=== PATIENT | male | born 1985 | race Caucasian/White ===

== ENCOUNTER 2023-10-22 17:44 | Emergency (ER) | payer OTHER ==
[2023-10-22 17:59] VITALS: BP 123/85; O2SAT 98
--- NOTE | 2023-10-22 18:03 | ED Physician Documentation ---
PD HPI DYSPNEA - Stated complaint Stated Complaint: COUGH/CONGESTION - Chief complaint Chief Complaint: Resp - History obtained from History obtained from: Patient - Additional information Additional information: Otherwise healthy 38-year-old gentleman who is active duty in the [employer] has been having chest and sinus congestion for the last 3 days with cough that is minimally productive. He feels like he has been wheezing. No history of asthma. No fevers with this. He has 2 small children at home that have had runny noses. PD PAST MEDICAL HISTORY - Past Medical History Past Medical History: No Cardiovascular: None Respiratory: None Neuro: None Endocrine/Autoimmune: None GI: None : None HEENT: None Psych: None Musculoskeletal: None Derm: None - Past Surgical History Past Surgical History: No - Present Medications Home Medications: Ambulatory Orders Medication Instructions Recorded Confirmed Albuterol Sulf [Ventolin Hfa 1 - 2 puffs INH Q4HR PRN #1 each 10/22/23 Inhaler] Benzonatate [Tessalon] 200 mg PO TID PRN #20 cap 10/22/23 predniSONE [Deltasone] 60 mg PO DAILY 5 Days #15 tablet 10/22/23 - Allergies Allergies/Adverse Reactions: Allergies Allergy/AdvReac Type Severity Reaction Status Date / Time No Known Drug Allergies Allergy Verified 10/22/23 17:48 - Social History Does the pt smoke?: No Smoking Status: Never smoker Does the pt drink ETOH?: No Does the pt have substance abuse?: No - Immunizations Immunizations are current?: Yes - POLST Patient has POLST: No PD ED PE NORMAL - Vitals Vital signs reviewed: Yes - General General: Alert and oriented X 3, No acute distress - HEENT HEENT: Other (Mildly red tonsillar pillars with diminutive tonsils, but no exudates. Supple neck without adenopathy. TMs normal.) - Neck Neck: Supple, no meningeal sign, No bony TTP - Cardiac Cardiac: RRR, No murmur, Other (Quite wheezy throughout with diminished findings, but no focal findings.) - Respiratory Respiratory: No respiratory distress - Abdomen Abdomen: Normal bowel sounds, Soft, Non tender - Neuro Neuro: Alert and oriented X 3, Normal speech Results - Vitals Vitals: Vital Signs - 24 hr 10/22/23 17:48 Temperature 36.7 C Heart Rate 74 Respiratory 16 Rate Blood Pressure 123/85 H O2 Saturation 98 Oxygen O2 Source Room air PD Medical Decision Making - ED course ED course: He presents with signs and symptoms consistent with a viral illness with some bronchitis and wheeziness. Administered steroids, Tessalon, and albuterol. No evidence of bacterial illness at this juncture including sinusitis, otitis, bacterial pharyngitis or pneumonia. Departure - Departure Disposition: Home, Self Care Clinical Impression: Viral bronchitis Condition: Good Record reviewed to determine appropriate education?: Yes Instructions: ED Upper Resp Infec No Abx Tx Prescriptions: Albuterol Sulf [Ventolin Hfa Inhaler] 1 - 2 puffs INH Q4HR PRN #1 each PRN Reason: Shortness Of Air/Wheezing predniSONE [Deltasone] 60 mg PO DAILY 5 Days #15 tablet Benzonatate [Tessalon] 200 mg PO TID PRN #20 cap PRN Reason: Cough Comments: I sent [facility] [place]. As discussed the syndrome itself as well as the wheezing is consistent with a viral infection that has caused some viral bronchitis. There is no evidence of bacterial illness, that said I would like you to return if you were to run a high fever or were not better in a week or so. 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
== END 2023-10-22 18:17 | disposition home or self-care (01) ==
LOC: ED 17:44
DX: J20.8 Acute bronchitis due to other specified organisms (principal)
CPT/HCPCS: 99283